=== PATIENT | female | born 1990 | race Caucasian/White ===

== ENCOUNTER 2021-11-18 16:03 | Emergency (ER) | payer OTHER ==
[2021-11-18 16:43] VITALS: BP 121/82; PULSE 65; RESP 20; TEMP 98.1; BMI 37.3
[2021-11-18] MEDS ORDERED: ONDANSETRON 4 MG/2 ML VIAL IVPUSH ONE (17:10)
[2021-11-18] MEDS ORDERED: SODIUM CHLORIDE 1,000 ML IV STA (17:10)
[2021-11-18] MEDS ORDERED: ACETAMINOPHEN 1000 MG/100 ML BAG IVPB ONE (17:10)
[2021-11-18] MEDS ORDERED: ONDANSETRON 4 MG/2 ML VIAL ONE (17:41)
[2021-11-18] MEDS ORDERED: ACETAMINOPHEN INJECTION 100 ML IVPB ONE (17:41)
[2021-11-18 18:34] LABS: BASO % 0.4 % (0-2.0); EOS % 0.4 % (0-4.5); HEMATOCRIT 43.4 % (32.4-45.2); LYMPH % 19.8 % (8-40); MCHC 34.6 g/dl (32.0-36.0); MEAN CELL VOLUME 98.4 fl (80-96); MEAN PLT VOLUME 6.6 fl (7.5-11.1); NEUT % 70.4 % (42.8-82.8); PLATELET COUNT 374 10^3/uL (134-434); RBC 4.41 M/mm3 (3.60-5.2); RDW 12.8 % (11.6-15.6); WHITE BLOOD COUNT 5.3 K/mm3 (4.0-10.0)
[2021-11-18 18:38] LABS: HCG,QUALITATIVE URINE Negative
[2021-11-18 18:50] LABS: URINE APPEARANCE CLOUDY; URINE BILIRUBIN NEGATIVE (NEGATIVE); URINE COLOR ORANGE; URINE GLUCOSE (UA) NEGATIVE (NEGATIVE); URINE KETONE NEGATIVE (NEGATIVE); URINE LEUK ESTERASE NEGATIVE (NEGATIVE); URINE NITRITE NEGATIVE (NEGATIVE); URINE PROTEIN NEGATIVE (NEGATIVE)
[2021-11-18 18:56] LABS: CHLORIDE 102 mmol/L (98-107); SODIUM 136 mmol/L (136-145)
[2021-11-18 18:58] LABS: BLOOD UREA NITROGEN 8.2 mg/dL (7-18); CALCIUM 8.7 mg/dL (8.5-10.1); LIPASE < 10 U/L (73-393)
[2021-11-18 18:59] LABS: ALBUMIN 3.9 g/dl (3.4-5.0); CO2 29 mmol/L (21-32); GLUCOSE,RANDOM 74 mg/dL (74-106)
[2021-11-18 19:01] LABS: CREATININE 0.8 mg/dL (0.55-1.3)
[2021-11-18 19:03] LABS: BILIRUBIN,TOTAL 1.7 mg/dL (0.2-1); TOT PROT 8.4 g/dl (6.4-8.2)
[2021-11-18 19:04] LABS: ALK PHOS 86 U/L (45-117); ANION GAP 5 MMOL/L (8-16); SGOT/AST 103 U/L (15-37); SGPT/ALT 45 U/L (13-61)
[2021-11-18 20:32] LABS: CALCIUM 8.3 mg/dL (8.5-10.1)
[2021-11-18 20:33] LABS: ALBUMIN 3.8 g/dl (3.4-5.0); BLOOD UREA NITROGEN 7.9 mg/dL (7-18)
[2021-11-18 20:36] LABS: CREATININE 0.7 mg/dL (0.55-1.3)
[2021-11-18 20:38] LABS: BILIRUBIN,TOTAL 1.6 mg/dL (0.2-1); TOT PROT 7.1 g/dl (6.4-8.2)
== END 2021-11-18 20:49 | disposition home or self-care (01) ==
LOC: JER 16:03
PROC: 3E0333Z Introduction of Anti-inflammatory into Peripheral Vein, Percutaneous Approach (ICD-10-PCS; principal; 2021-11-18)
PROC: 3E033GC Introduction of Other Therapeutic Substance into Peripheral Vein, Percutaneous Approach (ICD-10-PCS; 2021-11-18)
PROC: 3E0337Z Introduction of Electrolytic and Water Balance Substance into Peripheral Vein, Percutaneous Approach (ICD-10-PCS; 2021-11-18)
DX: K52.9 Noninfective gastroenteritis and colitis, unspecified (principal)
CPT/HCPCS: 36415; 80053; 81003; 83690; 84703; 85025; 87086; 96361; 96374; 96375; 99284-25